=== PATIENT | female | born 1970 | race Caucasian/White ===

== ENCOUNTER → 2019-01-22 09:06 | Outpatient (CLI) | payer OTHER, SELFPAY ==
[2019-01-22 09:51] LABS: Appearance Urine UA CLEAR; Bilirubin Urine UA NEGATIVE (NEGATIVE); Color Urine UA YELLOW; Glucose Urine UA NEGATIVE (Negative); Ketones Urine UA NEGATIVE (NEGATIVE); Leukocyte Esterase Urine UA NEGATIVE (NEGATIVE); Nitrite Urine UA NEGATIVE (Negative); Occult Blood Urine UA NEGATIVE (Negative); Protein Urine UA NEGATIVE (Negative); Specific Gravity Urine UA >=1.030 (1.000-1.035); Urobilinogen Urine UA 0.2 E.U./dL (0.2); pH Urine UA 5.5 (4.5-8.0)
[2019-01-22 10:30] LABS: Add Manual Diff / Slide Review NO; Basophils Absolute Auto 0 /uL (0-100); Basophils Percent Auto 0.2 % (0-2); Eosinophils Absolute Auto 300 /uL (0-450); Eosinophils Percent Auto 3.4 % (2-4); Hematocrit 38.4 % (36-46); Lymphocytes Absolute Auto 1500 /uL (1100-4500); Lymphocytes Percent Auto 19.9 % (25-40); Mean Corpuscular Hemoglobin 29.3 PG (26-34); Mean Corpuscular Volume 86.3 fL (80-100); Monocytes Absolute Auto 700 /uL (0-900); Monocytes Percent Auto 9.3 % (3-14); Neutrophils Absolute Auto 5000 /uL (1500-7000); Neutrophils Percent Auto 67.2 % (50-75); Platelet Count 368 X10^3/uL (150-400); Red Blood Cell Count 4.45 X10^6/uL (4.0-5.2); Red Cell Distribution Width 12.7 % (11.6-14.8); White Blood Cell Count 7.5 X10^3/uL (4.5-11.0)
[2019-01-22 11:08] LABS: Alanine Aminotransferase 33 IU/L (9-52); Albumin 4.1 g/dL (3.5-5.0); Albumin Globulin Ratio 1.4 (1.0-2.8); Alkaline Phosphatase 66 U/L (38-126); Aspartate Aminotransferase 23 IU/L (14-36); BUN Creatinine Ratio 17.5 (6-22); Bilirubin Total 0.9 mg/dL (0.2-1.3); Blood Urea Nitrogen 14 mg/dL (7-17); Calcium 8.9 mg/dL (8.4-10.2); Carbon Dioxide 28 mmol/L (22-32); Chloride 107 mmol/L (98-107); Cholesterol 189 mg/dL (140-199); Estimated Glomerular Filt Rate > 60.0 mL/min (>60); Glucose 99 mg/dL (70-100); HDL Cholesterol 45 mg/dL (40-60); HEMOLYSIS < 15 (0-50); LDL Cholesterol Calculated 129 mg/dL (<100); Potassium 3.9 mmol/L (3.4-5.1); Sodium 143 mmol/L (137-145); Total Protein 7.1 g/dL (6.3-8.2); Triglycerides 74 mg/dL (35-150)
[2019-01-22 11:36] LABS: Thyroid Stimulating Hormone 2.52 uIU/mL (0.47-4.68)
[2019-01-25 09:29] LABS: Hepatitis A Antibody IgM NONREACTIVE (NONREACTIVE); Hepatitis Acute Panel Interp 0.01; Hepatitis B Core Antibody IgM NONREACTIVE (NONREACTIVE); Hepatitis B Surface Antigen NONREACTIVE (NONREACTIVE); Hepatitis C Antibody NONREACTIVE
== END ==
PROVIDERS: PCP Family Medicine; Visit Provider Family Medicine
DX: E03.9 Hypothyroidism, unspecified (principal); R10.11 Right upper quadrant pain; R74.8 Abnormal levels of other serum enzymes; Z13.220 Encounter for screening for lipoid disorders; Z13.29 Encounter for screening for other suspected endocrine disorder; Z51.81 Encounter for therapeutic drug level monitoring
CPT/HCPCS: 36415; 80053; 80061; 80074; 81003; 84443; 85025

== ENCOUNTER → 2020-01-21 09:41 | Outpatient (CLI) | payer OTHER, SELFPAY ==
[2020-01-21 10:25] LABS: Add Manual Diff / Slide Review NO; Basophils Absolute Auto 100 /uL (0-100); Eosinophils Absolute Auto 200 /uL (0-450); Eosinophils Percent Auto 2.1 % (2-4); Hematocrit 39.5 % (36-46); Hemoglobin 13.8 g/dL (12.0-16.0); Lymphocytes Absolute Auto 2100 /uL (1100-4500); Lymphocytes Percent Auto 27.8 % (25-40); Mean Corpuscular HGB Conc 34.9 % (30-36); Mean Corpuscular Hemoglobin 30.5 PG (26-34); Mean Corpuscular Volume 87.6 fL (80-100); Monocytes Absolute Auto 600 /uL (0-900); Monocytes Percent Auto 8.7 % (3-14); Neutrophils Absolute Auto 4500 /uL (1500-7000); Neutrophils Percent Auto 60.4 % (50-75); Platelet Count 385 X10^3/uL (150-400); Red Blood Cell Count 4.51 X10^6/uL (4.0-5.2); Red Cell Distribution Width 12.8 % (11.6-14.8); White Blood Cell Count 7.4 X10^3/uL (4.5-11.0)
[2020-01-21 10:43] LABS: Hemoglobin A1C% w Est Avg Glu 5.2 % (4.0-6.0)
[2020-01-21 10:55] LABS: Alanine Aminotransferase 46 IU/L (<35); Albumin 4.3 g/dL (3.5-5.0); Albumin Globulin Ratio 1.5 (1.0-2.8); Alkaline Phosphatase 63 U/L (38-126); Aspartate Aminotransferase 39 IU/L (14-36); BUN Creatinine Ratio 15.3 (6-22); Bilirubin Total 0.8 mg/dL (0.2-1.3); Blood Urea Nitrogen 13 mg/dL (7-17); Carbon Dioxide 30 mmol/L (22-32); Chloride 105 mmol/L (98-107); Cholesterol 208 mg/dL (140-199); Estimated Glomerular Filt Rate > 60.0 mL/min (>60); Globulin 2.9 g/dL (1.7-4.1); Glucose 99 mg/dL (70-100); HDL Cholesterol 45 mg/dL (40-60); HEMOLYSIS < 15 (0-50); LDL Cholesterol Calculated 129 mg/dL (<100); Potassium 5.1 mmol/L (3.4-5.1); Sodium 138 mmol/L (137-145); Total Protein 7.2 g/dL (6.3-8.2); Triglycerides 168 mg/dL (35-150)
[2020-01-21 11:25] LABS: Thyroid Stimulating Hormone 2.15 uIU/mL (0.47-4.68)
== END ==
PROVIDERS: PCP Family Medicine; Referring Provider Family Medicine; Visit Provider Family Medicine
DX: Z00.00 Encounter for general adult medical examination without abnormal findings (principal)
CPT/HCPCS: 36415; 80053; 80061; 83036; 84443; 85025

== ENCOUNTER → 2021-08-27 08:19 | Outpatient (CLI) | payer OTHER, SELFPAY ==
[2021-08-27 09:01] LABS: Add Manual Diff / Slide Review NO; Basophils Absolute Auto 100 /uL (0-100); Basophils Percent Auto 0.8 % (0-2); Eosinophils Absolute Auto 200 /uL (0-450); Eosinophils Percent Auto 3.7 % (2-4); Hematocrit 38.5 % (36-46); Lymphocytes Absolute Auto 2200 /uL (1100-4500); Lymphocytes Percent Auto 32.8 % (25-40); Mean Corpuscular HGB Conc 33.8 % (30-36); Mean Corpuscular Hemoglobin 29.5 PG (26-34); Mean Corpuscular Volume 87.3 fL (80-100); Monocytes Absolute Auto 600 /uL (0-900); Monocytes Percent Auto 8.3 % (3-14); Neutrophils Absolute Auto 3600 /uL (1500-7000); Neutrophils Percent Auto 54.4 % (50-75); Platelet Count 409 X10^3/uL (150-400); Red Blood Cell Count 4.41 X10^6/uL (4.0-5.2); Red Cell Distribution Width 12.9 % (11.6-14.8); White Blood Cell Count 6.6 X10^3/uL (4.5-11.0)
[2021-08-27 09:41] LABS: Alanine Aminotransferase 27 IU/L (<35); Albumin 3.8 g/dL (3.5-5.0); Albumin Globulin Ratio 1.4 (1.0-2.8); Alkaline Phosphatase 61 U/L (38-126); Aspartate Aminotransferase 24 IU/L (14-36); Bilirubin Total 0.7 mg/dL (0.2-1.3); Blood Urea Nitrogen 10 mg/dL (7-17); Calcium 9.3 mg/dL (8.4-10.2); Carbon Dioxide 28 mmol/L (22-32); Chloride 108 mmol/L (98-107); Estimated Glomerular Filt Rate > 60.0 mL/min (>60); Globulin 2.8 g/dL (1.7-4.1); Glucose 105 mg/dL (70-100); HEMOLYSIS < 15 (0-50); Potassium 4.5 mmol/L (3.4-5.1); Sodium 140 mmol/L (137-145); Total Protein 6.6 g/dL (6.3-8.2)
== END ==
PROVIDERS: PCP Family Medicine; Referring Provider Family Medicine; Visit Provider Family Medicine
DX: G47.00 Insomnia, unspecified (principal); R10.13 Epigastric pain
CPT/HCPCS: 36415; 80053; 85025

== ENCOUNTER 2023-08-12 07:39 | Day surgery (SDC) | payer BC, SELFPAY ==
[2023-08-12 08:03] VITALS: BP 136/91; PULSE 97; RESP 17; TEMP 36.1; O2SAT 94
[2023-08-12] MEDS: LACTATED RINGERS 1,000 ML 42 ML IV (08:13)
--- NOTE | 2023-08-12 08:27 | P.HP_ITS ---
History of Present Illness History of Present Illness Date Patient Seen: 08/12/23 Time Patient Seen: 08:27 Chief complaint: SDC Narrative: 53-year-old woman here for screening colonoscopy and diagnostic EGD. For the past several months she has had complaint of difficulty swallowing the sensation that food is becoming stuck in her mid esophagus. She was recently started on omeprazole 20 mg daily with mild improvement but not resolution. She has not aware of any history of GERD or peptic ulcer disease. She has never had a prior colonoscopy. No family history of intestinal malignancy. [facility] Medical History Right shoulder pain Impacted cerumen of both ears Dyspepsia Preventative health care Psoriasis Sleep apnea in adult Well adult exam Cellulitis Insomnia Anxiety Surgical History Anesthesia Status post hysterectomy with oophorectomy (~2008) Family History Father Age: 94 Cancer Hypertension Prostate cancer, primary, with metastasis from prostate to other site Kidney failure [place] (myocardial infarction) Mother Heart disease Sister Age: 64 Heart disease Hypertension Social History Smoking Status: Never smoker alcohol intake: never Meds Home Medications and Allergies Home Medications Medication Instructions Recorded Confirmed Type clobetasol 0.05 % topical gel 1 applic topical BID #30 grams 05/30/22 06/16/23 Rx sodium,potassium,mag sulfates 17.5 See Rx Instructions PO .COMPLEX 07/03/23 Rx gram-3.13 gram-1.6 gram oral soln #354 mL (Suprep Bowel Prep Kit) omeprazole 20 mg capsule,delayed 20 mg PO DAILY #30 caps 08/11/23 08/12/23 Rx release zolpidem 10 mg tablet See Rx Instructions .Route 08/12/23 08/12/23 Rx .COMPLEX #30 tabs Allergies Allergy/AdvReac Type Severity Reaction Status Date / Time prochlorperazine Allergy Severe Nausea/vomi Verified 08/12/23 07:58 [PROCHLORPERAZINE] ting Exam Vital Signs (past 8 hours): - 08/12/23 08:03 Temperature 97.0 F L Pulse Rate 97 H Respiratory Rate 17 Blood Pressure 136/91 H Pulse Oximetry 94 Oxygen Delivery Method Room Air Oxygen Delivery Method Room Air Narrative Exam Narrative: General adult woman alert oriented no acute distress Chest nonlabored respiration Extremities warm well perfused Assessment & Plan Assessment & Plan narrative: 53-year-old woman with esophageal dysphagia here for diagnostic EGD with possible dilation and screening colonoscopy. Technical details were discussed. Risks, benefits, alternatives explained. Risks including but not limited to myocardial infarction, aspiration, bleeding, pain, missed lesion, incomplete examination, need for further radiographic studies, intestinal perforation, and need for major abdominal surgery were discussed. All questions were answered to their satisfaction, and they are in agreement with this plan.
[2023-08-12 09:14] VITALS: BP 161/76; PULSE 99; RESP 12; TEMP 36.8; O2SAT 97
[2023-08-12 09:18] VITALS: BP 149/72; PULSE 96; RESP 20; O2SAT 96
--- NOTE | 2023-08-12 09:18 | PM.OP.EC ---
Operative Date/Time/Diagnoses Date of procedure: 08/12/23 Time of procedure: 09:18 Pre-op diagnosis: Esophageal dysphagia, colorectal screening Post-op diagnosis: other (Gastritis) Procedure & Clinicians Study performed: Diagnostic esophagoduodenoscopy, colonoscopy Same procedure as scheduled: Yes Indications: 53-year-old woman who is developed esophageal dysphagia is here for diagnostic EGD and screening colonoscopy. Surgeon: Kel Terrazas Procedure Notes Procedure in detail: The history and physical was performed/updated and the patient is ASA class is 2. The procedure was discussed in detail with the patient. Potential risks complications including infection, bleeding, missed diagnosis, perforation, need for surgery, and were explained. Their questions were answered and informed consent was obtained. Patient placed in left lateral decubitus position. Time out was performed. Procedural sedation was administered by Anesthesia. A bite block was placed. the scope was inserted into the mouth and advanced through the esophagus and into the stomach. the pylorus was intubated and the duodenum was examined to the 2nd portion.. The scope was retroflexed within the stomach. The stomach was then decompressed and scope pulled back to the GE junction. The scope was then removed Examination began with a thorough inspection of the perianal area there was no evidence of fissures, fistulae, external hemorrhoids or cutaneous malignancy. The colonoscopy scope was then placed into the anal canal and was advanced to the cecum, which was identified by the ileocecal valve, the appendiceal orifice and the confluence of the taenia. The scope was then slowly withdrawn examining colon thoroughly in all directions, irrigating it of any residual stool. FINDINGS -thickened friable area of several cm within the gastric cardia not a jorge mass. Multiple biopsies obtained. -hiatal hernia -grossly normal esophagus. Biopsies obtained -normal colonoscopy without masses or polyps. The patient tolerated the procedure well. They will be discharged once criteria are met. The prep was of good/excellent quality. The withdrawl time was 7 minutes. Findings: gastritis and hiatal hernia Impression: Gastritis, some possibility this represents malignancy at the GE junction Post-procedure Plan for aftercare: Will notify with biopsy results Disposition: same day surgery
[2023-08-12 09:29] VITALS: BP 135/78; PULSE 95; RESP 20; O2SAT 21
[2023-08-12 09:34] VITALS: BP 127/99; PULSE 93; RESP 19; TEMP 37; O2SAT 96
[2023-08-12 09:47] LABS: Hematocrit 37.5 % (36-46); Hemoglobin 12.8 g/dL (12.0-16.0); Mean Corpuscular Hemoglobin 30.2 PG (26-34); Mean Corpuscular Volume 88.8 fL (80-100); Platelet Count 405 X10^3/uL (150-400); Red Blood Cell Count 4.22 X10^6/uL (4.0-5.2); Red Cell Distribution Width 14.3 % (11.6-14.8); White Blood Cell Count 7.2 X10^3/uL (4.5-11.0)
[2023-08-12 09:59] LABS: BUN Creatinine Ratio 13.3 (6-22); Blood Urea Nitrogen 10 mg/dL (7-17); Calcium 8.6 mg/dL (8.4-10.2); Carbon Dioxide 26 mmol/L (22-32); Chloride 106 mmol/L (98-107); Estimated Glomerular Filt Rate > 60 mL/min (>60); Glucose 128 mg/dL (70-100); HEMOLYSIS < 15 (0-50); Sodium 138 mmol/L (137-145)
--- NOTE | 2023-08-21 | PATH_ITS ---
[facility] Accession Number: [id number] No. of containers..02 Tissue . 01 Material submitted: . PART A: gastrointestinal site - GASTRIC CARDIA PART B: esophagus - ESOPHAGUS . 01 Diagnosis: A. Stomach, Cardia, Biopsy: Fragments of granulation tissue, consistent with nearby ulcer. Columnar mucosa with intestinal metaplasia and chronic inflammation. Fragment of squamous mucosa with no significant diagnostic abnormality. Negative for Helicobacter by immunohistochemistry. Negative for dysplasia and malignancy. . B. Esophagus, Biopsy: Squamous epithelium with no diagnostic abnormality. Intraepithelial eosinophils are not increased. Negative for dysplasia and malignancy. MRV 08/18/2023 1550 Local . 01 Electronically signed: . Meme Pate MD, Pathologist NPI- [id number] . 01 Gross description: . Part A: GASTRIC CARDIA: Received in formalin are 2 fragment(s) of barnes, soft tissue measuring 0.2 x 0.2 x 0.2 cm to 0.3 x 0.2 x 0.2 cm submitted entirely in 1 cassette(s) Part B: ESOPHAGUS: Received in formalin are 2 fragment(s) of barnes, soft tissue measuring 0.2 x 0.1 x 0.1 cm to 0.3 x 0.3 x 0.1 cm submitted entirely in 1 cassette(s) /JEROME 08/13/2023 1842 Local . 01 Microscopic: . A. An immunohistochemical stain was performed to evaluate for Helicobacter organisms and is negative. The control stain showed appropriate reactivity. . * This test was developed and its performance characteristics determined by [employer]. It has not been cleared or approved by the U.S. Food and Drug Administration. The FDA has determined that such clearance or approval is not necessary. This test is used for clinical purposes. It should not be regarded as investigational or for research. . 01 Pathologist provided ICD-10: R10.9 . 01 CPT . 861170, 801487, D38456 Specimen Comment: A courtesy copy of this report has been sent to [phone] Specimen Comment: A duplicate report has been generated due to demographic updates. Performed at: 01 [facility] [address] [place] [address], [place], [place] [id number] MD Sánchez Arceo MD Phone: [phone]
== END 2023-08-12 10:02 | disposition home or self-care (01) ==
PROVIDERS: Student in an Organized Health Care Education/Training Program; PCP Family Medicine; Referring Provider Surgery; Visit Provider Surgery
PROC: 0DJ08ZZ Inspection of Upper Intestinal Tract, Via Natural or Artificial Opening Endoscopic (ICD-10-PCS; CPT 43235; principal; 2023-08-12 08:45)
PROC: 0DJD8ZZ Inspection of Lower Intestinal Tract, Via Natural or Artificial Opening Endoscopic (ICD-10-PCS; CPT 45378; 2023-08-12 08:45)
DX: Z12.11 Encounter for screening for malignant neoplasm of colon (principal); K29.70 Gastritis, unspecified, without bleeding; K44.9 Diaphragmatic hernia without obstruction or gangrene
CPT/HCPCS: 45378; 43239; 80048; 85027; 93005; J2405; J2704

== ENCOUNTER → 2023-08-15 09:17 | Outpatient (CLI) | payer BC, SELFPAY ==
[2023-08-15 10:09] LABS: Add Manual Diff / Slide Review NO; Basophils Absolute Auto 100 /uL (0-100); Eosinophils Absolute Auto 200 /uL (0-450); Eosinophils Percent Auto 2.9 % (2-4); Hematocrit 38.4 % (36-46); Hemoglobin 13.4 g/dL (12.0-16.0); Lymphocytes Absolute Auto 2300 /uL (1100-4500); Lymphocytes Percent Auto 27.4 % (25-40); Mean Corpuscular HGB Conc 34.8 % (30-36); Mean Corpuscular Hemoglobin 30.2 PG (26-34); Mean Corpuscular Volume 86.9 fL (80-100); Monocytes Absolute Auto 700 /uL (0-900); Monocytes Percent Auto 8.6 % (3-14); Neutrophils Absolute Auto 4900 /uL (1500-7000); Neutrophils Percent Auto 60.1 % (50-75); Platelet Count 467 X10^3/uL (150-400); Red Blood Cell Count 4.42 X10^6/uL (4.0-5.2); Red Cell Distribution Width 13.7 % (11.6-14.8); White Blood Cell Count 8.2 X10^3/uL (4.5-11.0)
[2023-08-15 10:33] LABS: Alanine Aminotransferase 30 IU/L (<35); Albumin 3.8 g/dL (3.5-5.0); Albumin Globulin Ratio 1.3 (1.0-2.8); Alkaline Phosphatase 67 U/L (38-126); Aspartate Aminotransferase 22 IU/L (14-36); BUN Creatinine Ratio 17.6 (6-22); Bilirubin Total 0.9 mg/dL (0.2-1.3); Blood Urea Nitrogen 13 mg/dL (7-17); Calcium 9.2 mg/dL (8.4-10.2); Carbon Dioxide 25 mmol/L (22-32); Chloride 105 mmol/L (98-107); Cholesterol 184 mg/dL (140-199); Estimated Glomerular Filt Rate > 60 mL/min (>60); Globulin 2.9 g/dL (1.7-4.1); Glucose 112 mg/dL (70-100); HDL Cholesterol 46 mg/dL (40-60); HEMOLYSIS < 15 (0-50); LDL Cholesterol Calculated 123 mg/dL (<100); Potassium 4.1 mmol/L (3.4-5.1); Sodium 137 mmol/L (137-145); Total Protein 6.7 g/dL (6.3-8.2); Triglycerides 76 mg/dL (35-150)
[2023-08-15 10:53] LABS: TSH w/ Reflex to FT4 3.81 uIU/mL (0.47-4.68)
== END ==
LOC: LAB 09:18
PROVIDERS: PCP Family Medicine; Referring Provider Family Medicine; Visit Provider Family Medicine
DX: Z00.00 Encounter for general adult medical examination without abnormal findings (principal); G47.00 Insomnia, unspecified
CPT/HCPCS: 36415; 80053; 80061; 84443; 85025

== ENCOUNTER 2023-11-11 08:53 | Day surgery (SDC) | payer BC, SELFPAY ==
[2023-11-11 09:50] VITALS: BP 131/83; PULSE 88; RESP 18; TEMP 36.4; O2SAT 93
[2023-11-11] MEDS: LACTATED RINGERS 1,000 ML 42 ML IV (09:54)
--- NOTE | 2023-11-11 10:28 | PM.HP.1 ---
History of Present Illness History of Present Illness Date Patient Seen: 11/11/23 Time Patient Seen: 10:28 Chief complaint: SDC Narrative: Do is a 53-year-old woman with a history of hiatal hernia who was found to have a large gastric ulcer at the hiatus July 2022. She has not on anticoagulation and biopsies of the ulcer returned benign. She is here today for follow up upper endoscopy. She continues to have significant heartburn and regurgitation of food. [facility] Medical History Thrombocytosis Prediabetes Gastric ulcer Right shoulder pain Impacted cerumen of both ears Dyspepsia Preventative health care Psoriasis Sleep apnea in adult Well adult exam Cellulitis Insomnia Anxiety Surgical History Anesthesia Status post hysterectomy with oophorectomy (~2008) Family History Father Age: 95 Cancer Hypertension Prostate cancer, primary, with metastasis from prostate to other site Kidney failure [place] (myocardial infarction) Mother Heart disease Sister Age: 65 Heart disease Hypertension Social History Smoking Status: Never smoker alcohol intake: never Meds Home Medications and Allergies Home Medications Medication Instructions Recorded Confirmed Type clobetasol 0.05 % topical gel 1 applic topical BID #30 grams 05/30/22 11/11/23 Rx zolpidem 10 mg tablet See Rx Instructions .Route 08/27/23 11/11/23 Rx .COMPLEX #30 tabs omeprazole 20 mg capsule,delayed 20 mg PO DAILY #30 caps 10/07/23 11/11/23 Rx release Allergies Allergy/AdvReac Type Severity Reaction Status Date / Time prochlorperazine Allergy Severe Nausea/vomi Verified 11/11/23 09:35 [PROCHLORPERAZINE] ting Exam Vital Signs (past 8 hours): - 11/11/23 09:50 Temperature 97.5 F L Pulse Rate 88 Respiratory Rate 18 Blood Pressure 131/83 Pulse Oximetry 93 Oxygen Delivery Method Room Air Oxygen Delivery Method Room Air Narrative Exam Narrative: General adult woman alert oriented no acute distress Chest nonlabored respiration Extremities warm well perfused Assessment & Plan Assessment and plan (1) Gastric ulcer: Qualifiers: Gastric ulcer chronicity: chronic Gastric ulcer complication status: without hemorrhage or perforation Qualified Code(s): K25.7 - Chronic gastric ulcer without hemorrhage or perforation Status: Acute Assessment & Plan narrative: 53-year-old woman history of hiatal hernia with a large gastric ulcer here for follow up esophagogastroduodenoscopy. Overview of the procedure discussed. Procedural risks including hemorrhage, intestinal injury, aspiration were reviewed. She provides her written and verbal consent to proceed.
[2023-11-11 10:47] VITALS: BP 143/74; PULSE 98; RESP 20; TEMP 37.1; O2SAT 93
[2023-11-11 10:52] VITALS: BP 129/78; PULSE 93; RESP 17; O2SAT 95
--- NOTE | 2023-11-11 10:52 | PM.OP.EGD ---
Operative Date/Time/Diagnoses Date of procedure: 11/11/23 Time of procedure: 10:52 Pre-op diagnosis: Gastric ulcer Procedure & Clinicians Study performed: Esophagogastroduodenoscopy Same procedure as scheduled: Yes Indications: 53-year-old woman history of hiatal hernia with a recent large gastric ulcer here for follow-up surveillance Surgeon: Kel Terrazas Procedure Notes Procedure in detail: The history and physical was performed/updated and the patient is ASA class is 2. The procedure was discussed in detail with the patient. Potential risks complications including infection, bleeding, missed diagnosis, perforation, need for surgery, and were explained. Their questions were answered and informed consent was obtained. Patient placed in left lateral decubitus position. Time out was performed. Procedural sedation was administered by Anesthesia. A bite block was placed. the scope was inserted into the mouth and advanced through the esophagus and into the stomach. The pylorus was intubated and the duodenum was examined to the 2nd portion. The scope was then withdrawn into the stomach and was retroflexed. The stomach was decompressed and scope was withdrawn slowly through the esophagus. FINDINGS -resolved gastric cardia ulcer. -hiatal hernia The patient tolerated the procedure well and will be discharged when they meet criteria. Specimen(s): none sent Impression: Successful resolution of gastric ulcer, likely Bubba's ulcer Post-procedure Plan for aftercare: Esophagram and pending result possible referral to Dr. Sandie Zamora for hiatal hernia repair Disposition: same day surgery
[2023-11-11 10:57] VITALS: BP 135/75; PULSE 86; RESP 16; O2SAT 96
[2023-11-11 11:01] VITALS: BP 129/72; PULSE 85; RESP 18; TEMP 36.1; O2SAT 94
[2023-11-11 11:07] VITALS: BP 123/71; PULSE 84; RESP 15; TEMP 36.1; O2SAT 95
== END 2023-11-11 11:19 | disposition home or self-care (01) ==
PROVIDERS: PCP Family Medicine; Referring Provider Surgery; Visit Provider Surgery
PROC: 0DJ08ZZ Inspection of Upper Intestinal Tract, Via Natural or Artificial Opening Endoscopic (ICD-10-PCS; CPT 43235; principal; 2023-11-11 10:15)
DX: Z09 Encounter for follow-up examination after completed treatment for conditions other than malignant neoplasm (principal); Z87.11 Personal history of peptic ulcer disease; K44.9 Diaphragmatic hernia without obstruction or gangrene
CPT/HCPCS: 43235; J2704

== ENCOUNTER → 2023-11-17 08:48 | Outpatient (CLI) | payer BC, SELFPAY ==
--- NOTE | 2023-11-17 08:50 | DI.RAD.S_ITS ---
PROCEDURE: FL BARIUM SWALLOW INDICATIONS: Chronic gastric ulcer without hemorrhage or perfor COMPARISON: None. FINDINGS: Function: There is normal esophageal peristalsis. Gastroesophageal reflux was noted in the upright position without provocative maneuvers. The patient stated she was unable to swallow a barium tablet. Morphology: Air-contrast images demonstrate normal mucosal morphology. Single contrast views show no esophageal strictures, extrinsic mass effects, or diverticula. There is a sliding-type hiatal hernia. Limited images of the stomach demonstrate normal appearance. IMPRESSION: 1. Gastroesophageal reflux and sliding-type hiatal hernia. 2. No definite gastric ulceration or other mucosal abnormality visualized. Dictated by: Amanda Everett M.D. on 11/17/2023 at 10:31 Approved by: Amanda Everett M.D. on 11/17/2023 at 10:33
== END ==
LOC: RAD 08:49
PROVIDERS: PCP Family Medicine; Referring Provider Surgery; Visit Provider Surgery
DX: K25.7 Chronic gastric ulcer without hemorrhage or perforation (principal); K21.9 Gastro-esophageal reflux disease without esophagitis; K44.9 Diaphragmatic hernia without obstruction or gangrene
CPT/HCPCS: 74220

== ENCOUNTER → 2024-01-20 15:08 | Outpatient (CLI) | payer OTHER, SELFPAY ==
[2024-01-20 17:08] LABS: Add Manual Diff / Slide Review NO; Basophils Absolute Auto 100 /uL (0-100); Basophils Percent Auto 0.9 % (0-2); Eosinophils Absolute Auto 300 /uL (0-450); Eosinophils Percent Auto 2.9 % (2-4); Hemoglobin 13.6 g/dL (12.0-16.0); Lymphocytes Absolute Auto 2800 /uL (1100-4500); Lymphocytes Percent Auto 28.5 % (25-40); Mean Corpuscular HGB Conc 34.1 % (30-36); Mean Corpuscular Hemoglobin 29.9 PG (26-34); Mean Corpuscular Volume 87.8 fL (80-100); Monocytes Absolute Auto 900 /uL (0-900); Monocytes Percent Auto 8.8 % (3-14); Neutrophils Absolute Auto 5800 /uL (1500-7000); Neutrophils Percent Auto 58.9 % (50-75); Platelet Count 518 X10^3/uL (150-400); Red Blood Cell Count 4.55 X10^6/uL (4.0-5.2); Red Cell Distribution Width 14.9 % (11.6-14.8); White Blood Cell Count 9.8 X10^3/uL (4.5-11.0)
[2024-01-20 17:20] LABS: Hemoglobin A1C% w Est Avg Glu 5.1 % (4.0-6.0)
[2024-01-20 17:38] LABS: Alanine Aminotransferase 35 IU/L (<35); Albumin Globulin Ratio 1.3 (1.0-2.8); Alkaline Phosphatase 91 U/L (38-126); Aspartate Aminotransferase 29 IU/L (14-36); BUN Creatinine Ratio 13.3 (6-22); Bilirubin Total 0.8 mg/dL (0.2-1.3); Blood Urea Nitrogen 11 mg/dL (7-17); Calcium 8.7 mg/dL (8.4-10.2); Carbon Dioxide 25 mmol/L (22-32); Chloride 108 mmol/L (98-107); Estimated Glomerular Filt Rate > 60 mL/min (>60); Glucose 95 mg/dL (70-100); HEMOLYSIS < 15 (0-50); Potassium 4.9 mmol/L (3.4-5.1); Sodium 139 mmol/L (137-145)
== END ==
PROVIDERS: PCP Family Medicine; Referring Provider Family Medicine; Visit Provider Family Medicine
DX: K25.9 Gastric ulcer, unspecified as acute or chronic, without hemorrhage or perforation (principal)
CPT/HCPCS: 36415; 80053; 83036; 85025